=== PATIENT | male | born 1950 | race Two or more races ===

== ENCOUNTER 2021-03-02 13:44 | Outpatient (CLI) | payer OTHER ==
[2021-03-08] MEDS ORDERED: ASPI-992 PO (12:21)
== END 2021-03-02 23:59 | disposition home or self-care (01) ==
LOC: LAB 13:44
PROVIDERS: ATTEND Specialist
DX: Z01.812 Encounter for preprocedural laboratory examination (principal); Z20.822 Contact with and (suspected) exposure to COVID-19
CPT/HCPCS: C9803; U0003

== ENCOUNTER 2021-03-07 08:48 | Inpatient (IN) | payer OTHER ==
[~2021-03-07] VITALS: Ht 167.6 cm; Wt 66.0 kg
[2021-03-07] MEDS ORDERED: ACET-868 PO (09:28)
[2021-03-07] MEDS ORDERED: ACET-2605 PO (09:28)
[2021-03-07] MEDS ORDERED: TAMS-12 PO (09:28)
[2021-03-07] MEDS ORDERED: AMLO-212 PO (09:28)
[2021-03-07] MEDS ORDERED: ASPI-1169 PO (09:28)
[2021-03-07] MEDS ORDERED: MELA5TAB PO (09:28)
[2021-03-07] MEDS ORDERED: CALC1TAB30 PO (09:28)
[2021-03-07] MEDS ORDERED: GABA-532 PO (09:28)
[2021-03-07] MEDS ORDERED: ROSU20TA32 PO (09:28)
--- NOTE | 2021-03-07 09:30 | NUR ---
MS RN NOTE ADMITTED AROUND 09:10h IS A 71 YEAR OLD MALE, WHO CAME IN USING A WALKER. PATIENT IS ALERT/ ORIENTED X 4, AMBULATES WITH WALKER, ACCOMPANIED BY EX-. PATIENT IS SCHEDULED TO OR PROCEDURE FOR RIGHT TOTAL KNEE ARTHROPLASTY UNDER DR. IBRAHIM. PATIENT RESTING ON BED, COMFORT MEASURES PROVIDED. PATIENT ON ROOM AIR, WITH EQUAL AND UNLABORED BREATHING. PATIENT ON NPO SINCE 8PM LAST NIGHT. IV ACCESS STARTED ON THE RIGHT HAND G 20, PATENT AND INTACT, ON SALINE LOCK. PATIENT ABLE TO VERBALIZE NEEDS. NOT IN DISTRESS. DR. MENDEZ NOTIFIED OF ADMISSION. WILL CONTINUE TO MONITOR PATIENT.
[2021-03-07] MEDS ORDERED: methylPREDNISolone ACETATE 80 MG/ML VIAL ONE (10:08)
[2021-03-07] MEDS ORDERED: POLYMYXIN B SULFATE 500,000 UNITS ONE (10:08)
[2021-03-07] MEDS ORDERED: BUPIVACAINE 0.5 % PF 150 MG/30 ML VIAL ONE ×2 (10:08→10:51)
--- NOTE | 2021-03-07 10:10 | NUR ---
MS RN NOTE PATIENT SEEN BY DR. MENDEZ. WILL CONTINUE TO MONITOR PATIENT.
[2021-03-07] MEDS ORDERED: diphenhydrAMINE HCL 25 MG CAPSULE PO PRN (10:30)
[2021-03-07] MEDS ORDERED: MAG HYDROX/AL HYDROX/SIMETH 30 ML UDC PO PRN (10:30)
[2021-03-07] MEDS ORDERED: MAGNESIUM HYDROXIDE 30 ML UDC PO PRN (10:30)
[2021-03-07] MEDS ORDERED: TRANEXAMIC ACID 3,000 MG in SODIUM CHLORIDE IRRIG SOLUTION 70 ML IR ONE (10:30)
[2021-03-07] MEDS ORDERED: MENTHOL/CETYLPYRD (CEPACOL) 1 LOZ LOZENGE PO PRN (10:30)
[2021-03-07] MEDS ORDERED: ONDANSETRON HCL/PF 4 MG/2 ML VIAL IV PRN (10:30)
[2021-03-07] MEDS ORDERED: CLONIDINE HCL 0.1 MG TABLET PO PRN (10:30)
--- NOTE | 2021-03-07 10:40 | NUR ---
MS RN NOTE PATIENT PICKED UP FOR OR AROUND 1035H. IN STABLE CONDITION. CONSENTS AND PREOPERATIVE CHECK LISTS SIGNED AND ATTACHED TO CHART.
[2021-03-07] MEDS ORDERED: HYDROMORPHONE INJ 2 MG/ML DISP.SYRIN ONE (10:51)
[2021-03-07] MEDS ORDERED: ONDANSETRON HCL/PF 4 MG/2 ML VIAL IVP PRN (11:00)
[2021-03-07] MEDS ORDERED: hydrALAZINE HCL IV 20 MG VIAL IV PRN (11:00)
[2021-03-07] MEDS ORDERED: SEVOFLURANE 250 ML BOTTLE IH ONE (11:04)
[2021-03-07] MEDS ORDERED: FENTANYL PF 100MCG/2ML AMPUL ONE (12:29)
--- NOTE | 2021-03-07 12:30 | NUR ---
MS RN NOTE PATIENT BACK FROM OR IN STABLE CONDITION. PATIENT RETURNED TO FLOOR VIA BED, ALERT AND ORIENTED. COMFORT MEASURES PROVIDED. ABLE TO MAKE NEEDS KNOWN, WITH ONGOING IVF OF LR RUNNING AT 100ML/HR, INFUSING WELL. PATIENT WITH SOME DISCOMFORT ON THE RIGHT KNEE WITH IMMOBILIZER AND LEG COVERED WITH ELASTIC BANDAGE. IN LEG PUMP ON THE LEFT LEG. VITAL SIGNS MONITORED AND WNL WITH NO SIGNS OF DISTRESS. NOT IN DISTRESS. WILL CONTINUE TO MONITOR PATIENT.
[2021-03-07] MEDS ORDERED: HYDROMORPHONE 1 MG/1 ML DISP.SYRIN ONE ×2 (12:33→12:53)
[2021-03-07] MEDS ORDERED: IV LR 1000 ML 1,000 ML IV PRN (13:00)
--- NOTE | 2021-03-07 14:00 | NUR ---
MS RN NOTE PATIENT WITH ORDER TO HAVE CPAP TO BE USED AT NIGHT AND WHEN SNOOZING/ DOZING. RT NOTIFIED OF MD ORDER.
[2021-03-07] MEDS: oxyCODONE IR immediate release 5 MG PO PRN ×2 (14:39→23:04)
[2021-03-07] MEDS: DOCUSATE SODIUM 100 MG CAPSULE PO SCH (16:54)
[2021-03-07] MEDS: MORPHINE SULFATE INJ 4 MG/ML DISP.SYRIN IV PRN (16:55)
[2021-03-07] MEDS: GABAPENTIN 300 MG CAPSULE PO SCH (16:55)
[2021-03-07] MEDS: ANCEF 1 GM/50 ML D5W IV SCH (18:31)
--- NOTE | 2021-03-07 18:49 | NUR ---
MS RN CLOSING NOTE PATIENT IS ALERT/ ORIENTED X 4. PATIENT RESTING ON BED, COMFORT MEASURES PROVIDED. PATIENT ON ROOM AIR, WITH EQUAL AND UNLABORED BREATHING. IV ACCESS ON THE RIGHT HAND G 20 WITH IVF OF LR RUNNING AT 100ML/HR. PATIENT ABLE TO VERBALIZE NEEDS. NOT IN DISTRESS. NOT COMPLAINING OF ANY PAIN OR DISCOMFORT AT THIS TIME. PATIENT HAD OR PROCEDURE OF TOTAL KNEE ARTHROPLASTY OF THE RIGHT KNEE WITH ELASTIC BANDAGE AND IMMOBILIZER. WITH GOOD CIRCULATION ON THE FOOT. WITH NO MOTOR OR SENSORY DEFICIT NOTED. SAFETY MEASURES ENSURED WITH BED LOCKED, AND AT LOWEST POSITION. MAINTAINED ON MODERATE TO HIGH BACK REST. CALL LIGHT WITHIN REACH AT ALL TIMES. WILL ENDORSE PATIENT FOR CONTINUITY OF CARE.
--- NOTE | 2021-03-07 19:30 | NUR ---
MS RN OPENING NOTE RECEIVED PT IN BED AWAKE. A/O X4. PT STABLE ON ROOM AIR. NO SOB OR S/S OF RESPIRATORY DISTRESS. IV ACCESS ON THE RIGHT HAND G 20 WITH IVF OF LR RUNNING AT 100ML/HR, INTACT AND PATENT. PATIENT HAD OR PROCEDURE OF TOTAL KNEE ARTHROPLASTY OF THE RIGHT KNEE WITH ELASTIC BANDAGE AND IMMOBILIZER. WITH GOOD CIRCULATION ON THE FOOT. SAFETY PRECAUTIONS IN PLACE. BED IN LOWEST LOCKED POSITION, HOB ELEVATED, SIDE RAILS UP X2, AND CALL LIGHT AND TABLE WITHIN REACH. WILL CONTINUE TO MONITOR.
[2021-03-07] MEDS: FAMOTIDINE (20 MG) 20 MG TABLET PO SCH (20:04)
[2021-03-07] MEDS: TAMSULOSIN 0.4 MG CAP.SR.24H PO SCH (21:50)
[2021-03-07] MEDS ORDERED: TAMSULOSIN 0.4 MG CAP.SR.24H PO SCH (22:00)
--- NOTE | 2021-03-07 23:04 | NUR ---
RN NOTE PT COMPLAINED OF PAIN 6/10 OF THE RIGHT KNEE. GAVE OXY IR 10 MG PER DOCTOR ORDER. WILL CONTINUE TO MONITOR.
--- NOTE | 2021-03-07 23:10 | NUR ---
RT PT declined to be placed on NOC CPAP. Discussed risk and benefits with Pt. Pt said he would rather not use it, and that he does not use his CPAP at home often. No SOB noted at this time. RN aware.
[2021-03-08] MEDS: ANCEF 1 GM/50 ML D5W IV SCH (02:32)
[2021-03-08] MEDS: MORPHINE SULFATE INJ 4 MG/ML DISP.SYRIN IV PRN ×2 (02:49→14:33)
--- NOTE | 2021-03-08 02:49 | NUR ---
RN NOTE PT COMPLAINED ABOUT PAIN 3/10 OF THE RIGHT KNEE. ADMINISTERED MORPHINE SULFATE 2 MG PER ORDER. WILL CONTINUE TO MONITOR.
[2021-03-08] MEDS: HYDROMORPHONE 1 MG/1 ML DISP.SYRIN IM/IV/SC PRN ×4 (04:56→20:11)
--- NOTE | 2021-03-08 04:56 | NUR ---
RN NOTE PT COMPLAINED OF PAIN 8/10 OF THE RIGHT KNEE. ADMINISTERED DILAUDID 0.5 MG ORDERED. WILL CONTINUE TO MONITOR.
--- NOTE | 2021-03-08 06:30 | NUR ---
MS RN CLOSING NOTE PT IN BED AWAKE. A/O X4. PT STABLE ON ROOM AIR. NO SOB OR S/S OF RESPIRATORY DISTRESS. IV ACCESS ON THE RIGHT HAND G 20 WITH IVF OF LR RUNNING AT 100ML/HR, INTACT AND PATENT. PATIENT HAD OR PROCEDURE OF TOTAL KNEE ARTHROPLASTY OF THE RIGHT KNEE WITH ELASTIC BANDAGE AND IMMOBILIZER. WITH GOOD CIRCULATION ON THE FOOT. ALL NEEDS MET AT THIS TIME. SAFETY PRECAUTIONS MAINTAINED AT ALL TIMES. BED IN LOWEST LOCKED POSITION, HOB ELEVATED, SIDE RAILS UP X2, AND CALL LIGHT AND TABLE WITHIN REACH. WILL ENDORSE TO ONCOMING NURSE FOR JAROCHO.
[2021-03-08 06:35] LABS: BASOPHILS % (AUTO) 0.1 % (0.0-2.0); HEMATOCRIT 33 % (39-51); HEMOGLOBIN 11.3 g/dL (13.5-17.5); LYMPHOCYTES # (AUTO) 0.9 K/uL (0.8-4.8); LYMPHOCYTES % (AUTO) 8.5 % (20.0-44.0); MEAN CORPUSCULAR HGB CONC 34 g/dl (31.0-36.0); MEAN CORPUSCULAR VOLUME 95 fL (80-96); MONOCYTES # (AUTO) 1.2 K/uL (0.1-1.30); MONOCYTES % (AUTO) 11.5 % (2.0-12.0); NEUTROPHILS # (AUTO) 8.2 K/uL (1.8-8.9); NEUTROPHILS % (AUTO) 79.9 % (43.0-81.0); PLATELET COUNT (AUTO) 215 K/uL (150-450); WHITE BLOOD COUNT (AUTO) 10.2 K/uL (4.3-11.0)
[2021-03-08 06:36] LABS: ALBUMIN 3.4 g/dL (3.4-5.0); BILIRUBIN,TOTAL 0.6 mg/dL (0.2-1.0); CALCIUM, SERUM 8.1 mg/dL (8.5-10.1); CREATININE 0.9 mg/dL (0.6-1.3); PHOSPHORUS 3.3 mg/dL (2.5-4.9); POTASSIUM 4.1 mmol/L (3.5-5.1); TOTAL PROTEIN, SERUM 6.9 g/dL (6.4-8.2)
--- NOTE | 2021-03-08 07:18 | NUR ---
MS SINGH OPENING NOTE RECEIVED PATIENT ALERT/ ORIENTED X 4. PATIENT ON ROOM AIR, WITH EQUAL AND UNLABORED BREATHING. WITH IV ACCESS ON THE RIGHT HAND G 20 WITH IVF OF LR RUNNING AT 100ML/HR. PATIENT ABLE TO VERBALIZE NEEDS. NOT COMPLAINING OF ANY PAIN OR DISCOMFORT AT THIS TIME. PATIENT S/P RIGHT TKA WITH ELASTIC BANDAGE AND IMMOBILIZER. WITH GOOD CIRCULATION ON THE FOOT. WITH NO MOTOR OR SENSORY DEFICIT NOTED. SAFETY MEASURES ENSURED WITH BED LOCKED, AND AT LOWEST POSITION. SIDE RAILS RAISED. CALL LIGHT WITHIN REACH AT ALL TIMES. WILL ENDORSE PATIENT FOR CONTINUITY OF CARE. Addendum: 03/08/21 at 1859 by JACQUES AGUILAR RN LAST LINE. WILL CONTINUE MONITORING PATIENT.
[2021-03-08 08:00] VITALS: BP 110/59
[2021-03-08] MEDS: GABAPENTIN 300 MG CAPSULE PO SCH ×3 (08:18→16:46)
[2021-03-08] MEDS: ATORVASTATIN 40 MG TABLET PO SCH (08:18)
[2021-03-08] MEDS: DOCUSATE SODIUM 100 MG CAPSULE PO SCH ×2 (08:18→16:46)
[2021-03-08] MEDS: ASPIRIN 325 MG TABLET PO SCH (08:18)
[2021-03-08] MEDS: AMLODIPINE BESYLATE 5 MG TABLET PO SCH (08:19)
[2021-03-08] MEDS: FAMOTIDINE (20 MG) 20 MG TABLET PO SCH ×2 (08:19→20:10)
[2021-03-08] MEDS: oxyCODONE IR immediate release 5 MG PO PRN ×3 (08:20→16:46)
[2021-03-08] MEDS ORDERED: GABAPENTIN 100 MG CAPSULE PO SCH (09:00)
[2021-03-08] MEDS ORDERED: ASPI-992 PO (12:21)
--- NOTE | 2021-03-08 15:13 | NUR ---
MS RN NOTE PATIENT ON CPM MACHINE BUT UNABLE TO TOLERATE MORE THAN 20 MINUTES AND SAID HE HAD BEEN IN PAIN SINCE. PAIN MEDICATIONS GIVEN. PROVIDED WITH CALM AND QUIET ENVIRONMENT. WILL CONTINUE TO MONITOR PATIENT.
[2021-03-08 16:00] VITALS: BP 146/80
--- NOTE | 2021-03-08 17:54 | NUR ---
MS RN NOTE PATIENT SEEN BY ORTHO BILL CLERK MILTON. WILL CONTINUE TO MONITOR PATIENT.
--- NOTE | 2021-03-08 18:58 | NUR ---
MS RN CLOSING NOTE PATIENT ALERT/ ORIENTED X 4. PATIENT ON ROOM AIR, WITH EQUAL AND UNLABORED BREATHING. WITH IV ACCESS ON THE RIGHT HAND G 20 WITH IVF OF LR RUNNING AT 100ML/HR. PATIENT ABLE TO VERBALIZE NEEDS. NOT COMPLAINING OF ANY PAIN OR DISCOMFORT AT THIS TIME. PATIENT S/P RIGHT TKA WITH ELASTIC BANDAGE. WITH GOOD CIRCULATION ON THE FOOT. WITH NO MOTOR OR SENSORY DEFICIT NOTED. SAFETY MEASURES ENSURED WITH BED LOCKED, AND AT LOWEST POSITION. SIDE RAILS RAISED. CALL LIGHT WITHIN REACH AT ALL TIMES. WILL ENDORSE PATIENT FOR CONTINUITY OF CARE.
--- NOTE | 2021-03-08 19:25 | NUR ---
MS RN OPENING NOTE RECEIVED PT IN BED AWAKE. A/O X4. PT STABLE ON ROOM AIR. NO SOB OR S/S OF RESPIRATORY DISTRESS. IV ACCESS ON THE RIGHT HAND G 20, INTACT AND PATENT. PATIENT HAD OR PROCEDURE OF TOTAL KNEE ARTHROPLASTY OF THE RIGHT KNEE WITH ELASTIC BANDAGE AND IMMOBILIZER. WITH GOOD CIRCULATION ON THE FOOT. SAFETY PRECAUTIONS IN PLACE. BED IN LOWEST LOCKED POSITION, HOB ELEVATED, SIDE RAILS UP X2, AND CALL LIGHT AND TABLE WITHIN REACH. WILL CONTINUE TO MONITOR.
--- NOTE | 2021-03-08 19:35 | NUR ---
RN NOTE PT REFUSING IV FLUIDS. PATIENT IS CONSUMING WATER ORALLY AND IN URINATING MORE THAN 30 ML/HR. NO S/S OF DEHYDRATION AT THIS TIME. HELD IV FLUIDS PER PATIENT REQUEST. WILL CONTINUE TO MONITOR.
[2021-03-08 20:00] VITALS: BP 139/66
--- NOTE | 2021-03-08 20:11 | NUR ---
RN NOTE PT COMPLAINED OF PAIN 10/10 OF THE RIGHT KNEE. ADMINISTERED DILAUDID 0.5 MG ORDERED. VSS. WILL CONTINUE TO MONITOR.
[2021-03-08] MEDS: TAMSULOSIN 0.4 MG CAP.SR.24H PO SCH (22:16)
[2021-03-09] MEDS: HYDROMORPHONE 1 MG/1 ML DISP.SYRIN IM/IV/SC PRN ×3 (01:53→10:48)
--- NOTE | 2021-03-09 01:53 | NUR ---
RN NOTE PT COMPLAINED OF PAIN 9/10 OF THE RIGHT KNEE. ADMINISTERED DILAUDID 0.5 MG ORDERED. VSS. WILL CONTINUE TO MONITOR.
--- NOTE | 2021-03-09 06:45 | NUR ---
MS RN CLOSING NOTE PT IN BED AWAKE. A/O X4. PT STABLE ON ROOM AIR. NO SOB OR S/S OF RESPIRATORY DISTRESS. IV ACCESS ON THE RIGHT HAND G 20, INTACT AND PATENT. PATIENT HAD OR PROCEDURE OF TOTAL KNEE ARTHROPLASTY OF THE RIGHT KNEE WITH ELASTIC BANDAGE AND IMMOBILIZER. WITH GOOD CIRCULATION ON THE FOOT. DRESSING C/D/I. ALL NEEDS MET AT THIS TIME. SAFETY PRECAUTIONS MAINTAINED AT ALL TIMES. BED IN LOWEST LOCKED POSITION, HOB ELEVATED, SIDE RAILS UP X2, AND CALL LIGHT AND TABLE WITHIN REACH. WILL ENDORSE TO ONCOMING NURSE FOR JAROCHO.
--- NOTE | 2021-03-09 07:07 | NUR ---
MS RN OPENING NOTES RECEIVED PT AWAKE IN BED IN NO ACUTE SIGNS OF DISTRESS. A/O X4. ABLE TO MAKE NEEDS KNOWN, DENIES PAIN AT THIS TIME. ON ROOM AIR. TOLERATING WELL, BREATHING EVEN AND UNLABORED. IV ACCESS ON RIGHT HAND G# 20 INTACT AND PATENT. DRESSING ON RIGHT KNEE WRAPPED WITH DONAVON BANDAGE C/D/I. SAFETY PRECAUTIONS IN PLACE: BED IN LOWEST LOCKED POSITION, HOB ELEVATED, SIDE RAILS UP X2 AND CALL LIGHT AND TABLE WITHIN REACH. WILL CONTINUE TO MONITOR.
[2021-03-09 08:00] VITALS: BP 148/74
[2021-03-09] MEDS: FAMOTIDINE (20 MG) 20 MG TABLET PO SCH ×2 (08:10→21:40)
[2021-03-09] MEDS: AMLODIPINE BESYLATE 5 MG TABLET PO SCH (08:10)
[2021-03-09] MEDS: GABAPENTIN 300 MG CAPSULE PO SCH ×3 (08:10→16:35)
[2021-03-09] MEDS: ASPIRIN 325 MG TABLET PO SCH (08:10)
[2021-03-09] MEDS: DOCUSATE SODIUM 100 MG CAPSULE PO SCH ×2 (08:10→16:35)
[2021-03-09] MEDS: ATORVASTATIN 40 MG TABLET PO SCH (08:10)
--- NOTE | 2021-03-09 08:18 | NUR ---
RN NOTES PT C/O RIGHT KNEE PAIN, 10/10 SCALE. PRN DILAUDID 0/5MG/0.5ML IVP ADMINISTERED AT 0809. WILL CONTINUE TO MONITOR AND REASSESS.
--- NOTE | 2021-03-09 10:46 | NUR ---
RN NOTES RIGHT KNEE DRESSING CHANGED BT BAKARI MCCRAY JUST NOW.
--- NOTE | 2021-03-09 10:54 | NUR ---
RN NOTES PT C/O RIGHT KNEE PAIN AFTER DRESSING CHANGED BY ALLISON MCCRAY, 8/10 SCALE. PRN DILAUDID 0/5MG/0.5ML IVP ADMINISTERED AT 1048. WILL CONTINUE TO MONITOR AND REASSESS.
[2021-03-09] MEDS: oxyCODONE IR immediate release 5 MG PO PRN (12:54)
--- NOTE | 2021-03-09 12:58 | NUR ---
RN NOTES PT C/O ACHING AND SHARP RIGHT KNEE PAIN, 7/10 SCALE. PRN OXY 1R 10MG PO GIVEN AT 1254. WILL CONTINUE TO MONITOR AND REASSESS.
--- NOTE | 2021-03-09 13:59 | NUR ---
RN NOTES TOPPIECE CHOPPER JACQUELINE AT PT'S BEDSIDE STATED THAT PT WILL BE DISCHARGED TO "[facility]" PENDING AUTHORIZATION. PT IS AWARE.
[2021-03-09 16:00] VITALS: BP 132/56
--- NOTE | 2021-03-09 16:00 | NUR ---
RN NOTES CPM MACHINE REMOVED THAT WAS PLACED BY PHYSICAL THERAPIST EARLIER.
[2021-03-09] MEDS: HYDROMORPHONE 1 MG/1 ML DISP.SYRIN SQ PRN ×3 (16:35→23:23)
--- NOTE | 2021-03-09 16:40 | NUR ---
RN NOTES PT C/O RIGHT KNEE PAIN, 8/10 SCALE. PRN DILAUDID 1 MG/ML IVP ADMINISTERED AT 1635. WILL CONTINUE TO MONITOR AND REASSESS.
--- NOTE | 2021-03-09 18:36 | NUR ---
MS RN CLOSING NOTES PT IN BED AWAKE AND RESTING AT MODERATE HIGH BACKREST POSITION. A/O X4. ABLE TO MAKE NEEDS KNOWN. ON ROOM AIR, TOLERATING WELL, BREATHING EVEN AND UNLABORED. IV ACCESS ON RIGHT HAND G# 20 INTACT, PATENT AND FLUSHES WELL. DRESSING ON RIGHT KNEE WRAPPED WITH DONAVON BANDAGE C/D/I. ALL NEEDS AND CARE ATTENDED WELL. SAFETY PRECAUTIONS IN PLACE: BED IN LOWEST LOCKED POSITION, HOB ELEVATED, SIDE RAILS UP X2, CALL LIGHT AND TABLE WITHIN EASY REACH OF PT. WILL ENDORSE JAROCHO TO WAISTLINE JOINER OVERLOCK NURSE
--- NOTE | 2021-03-09 19:25 | NUR ---
MS RN OPENING NOTES RECEIVED PATIENT LAYING AWAKE IN BED. A/O X4. PATIENT WITH REGULAR AND UNLABORED BREATHING ON ROOM AIR, TOLERATED WELL. NO SIGNS AND SYMPTOMS OF DISTRESS NOTED. NO COMPLAIN OF PAIN OR DISCOMFORT AT THIS TIME. IV ACCESS R HAND G#20 SL. ACCESS PATENT AND INTACT. SAFETY PRECAUTIONS ENFORCED BED LOCKED AND AT LOWEST POSITION. SIDERAILS UP X2. CALL LIGHT WITHIN REACH AT ALL TIMES. WILL CONTINUE TO MONITOR PATIENT.
[2021-03-09 20:00] VITALS: BP 126/74
--- NOTE | 2021-03-09 20:21 | NUR ---
MS RN NOTES PATIENT COMPLAINED OF PAIN. ADMINISTERED DILAUDID 1MG/ML Q3H PRN ORDERED BY HOSPITALIST.
[2021-03-09] MEDS: TAMSULOSIN 0.4 MG CAP.SR.24H PO SCH (21:40)
--- NOTE | 2021-03-09 23:23 | NUR ---
MS RN NOTES PATIENT COMPLAINED OF PAIN. ADMINISTERED DILAUDID 1MG/ML Q3H PRN ORDERED BY HOSPITALIST.
[2021-03-10] MEDS: oxyCODONE IR immediate release 5 MG PO PRN ×5 (01:27→16:20)
--- NOTE | 2021-03-10 01:27 | NUR ---
MS RN NOTES PATIENT COMPLAINED OF PAIN. ADMINISTERED OXYIR 10 MG PO Q3H PRN ORDERED BY HOSPITALIST.
[2021-03-10] MEDS: HYDROMORPHONE 1 MG/1 ML DISP.SYRIN SQ PRN (03:04)
[2021-03-10] MEDS ORDERED: MAGNESIUM CITRATE 296 ML BOTTLE PO ONE (06:57)
[2021-03-10] MEDS ORDERED: MAGNESIUM CITRATE 296 ML BOTTLE PO PRN (07:00)
--- NOTE | 2021-03-10 07:34 | NUR ---
MS RN CLOSING NOTES PATIENT STILL LAYING AWAKE IN BED. A/O X4. PATIENT WITH REGULAR AND UNLABORED BREATHING ON ROOM AIR, TOLERATED WELL. NO SIGNS AND SYMPTOMS OF DISTRESS NOTED. NO COMPLAIN OF PAIN OR DISCOMFORT AT THIS TIME. IV ACCESS R HAND G#20 SL. ACCESS PATENT AND INTACT. SAFETY PRECAUTIONS ENFORCED BED LOCKED AND AT LOWEST POSITION. SIDERAILS UP X2. CALL LIGHT WITHIN REACH AT ALL TIMES. WILL ENDORSE JAROCHO TO DAY SHIFT NURSE.
--- NOTE | 2021-03-10 08:05 | NUR ---
RN note Patient received in bed, AO x 4, able to responds all stimuli. Skin is warm to touch, keep clean/dry, intact IV site on right hand. Patient s/p right total knee arthroplasty and able to reposition self. Respiratory even and unlabored on room air, no SOB observed. Call light within reach, kept lower bed position for safety. Will continue to monitor.
[2021-03-10 08:09] VITALS: BP 116/71
[2021-03-10] MEDS: ATORVASTATIN 40 MG TABLET PO SCH (09:31)
[2021-03-10] MEDS: DOCUSATE SODIUM 100 MG CAPSULE PO SCH ×2 (09:31→16:20)
[2021-03-10] MEDS: GABAPENTIN 300 MG CAPSULE PO SCH ×3 (09:31→16:20)
[2021-03-10] MEDS: AMLODIPINE BESYLATE 5 MG TABLET PO SCH (09:32)
[2021-03-10] MEDS: ASPIRIN 325 MG TABLET PO SCH (09:32)
[2021-03-10] MEDS: FAMOTIDINE (20 MG) 20 MG TABLET PO SCH ×2 (09:32→21:16)
[2021-03-10 16:26] VITALS: BP 128/72
--- NOTE | 2021-03-10 17:58 | NUR ---
RN Closing Note Patient in bed, resting, remains AO x 4. Respiratory even and unlabored on room air. Skin is warm to touch, keep clean/dry, intact IN site site on right CAIN. Patient s/p right total knee arthroplasty and tolerated well. No s/s of adverse reaction observed from Abx. Kept elevated HOB for airway and lower position of the bed for safety. Call light within reach, all needs met. will endorse cage shift manager.
--- NOTE | 2021-03-10 19:29 | NUR ---
MS RN OPENING NOTES: RECEIVED PATIENT IN BED AWAKE, BED IN LOW POSITION, CALL LIGHTS WITHIN REACH, NO COMPLAIN OF PAIN AND DISCOMFORT AT THIS TIME, PATIENT IS A/O X4 AMBULATORY WITH SUPERVISION, WITH IV LINE AT RT HAND #20SL, ON ROOM AIR NO SOB WAS OBSERVED, ALL NEEDS MET, WILL CONTINUE TO MONITOR.
[2021-03-10 20:00] VITALS: BP 111/61
[2021-03-11] MEDS: HYDROMORPHONE 1 MG/1 ML DISP.SYRIN SQ PRN ×3 (01:06→17:08)
[2021-03-11] MEDS: oxyCODONE IR immediate release 5 MG PO PRN ×4 (04:51→22:01)
--- NOTE | 2021-03-11 06:33 | NUR ---
RN CLOSING NOTES: PATIENT SLEEP IN BED COMFORTABLY BED IN LOW POSITION, CALL LIGHTS WITHIN REACH, NO COMPLAIN OF PAIN AND DISCOMFORT AT THIS TIME, PATIENT ABLE TO AMBULATE WITH SUPERVISION, WITHIV LINE AT RT HAND #20SL ON CPM TOLERATED, PATIENT KE[T CLEAN AND DRY, ALL NEEDS MET, ENDORSE TO INCOMING SHIFT.
--- NOTE | 2021-03-11 07:15 | NUR ---
MS RN OPENING NOTE RECEIVED PATIENT ALERT/ ORIENTED X 4. PATIENT ON ROOM AIR, WITH EQUAL AND UNLABORED BREATHING. WITH IV ACCESS ON THE RIGHT HAND G 20, IV ACCESS PATENT AND INTACT. PATIENT ABLE TO VERBALIZE NEEDS. NOT COMPLAINING OF ANY PAIN OR DISCOMFORT AT THIS TIME. PATIENT S/P RIGHT TKA WITH ELASTIC BANDAGE. WITH GOOD CIRCULATION ON THE FOOT. WITH NO MOTOR OR SENSORY DEFICIT NOTED. SAFETY MEASURES ENSURED WITH BED LOCKED, AND AT LOWEST POSITION. SIDE RAILS RAISED. CALL LIGHT WITHIN REACH AT ALL TIMES. WILL CONTINUE TO MONITOR PATIENT.
[2021-03-11] MEDS: ATORVASTATIN 40 MG TABLET PO SCH (08:25)
[2021-03-11] MEDS: GABAPENTIN 300 MG CAPSULE PO SCH ×3 (08:25→17:07)
[2021-03-11] MEDS: ASPIRIN 325 MG TABLET PO SCH (08:25)
[2021-03-11] MEDS: DOCUSATE SODIUM 100 MG CAPSULE PO SCH ×2 (08:25→17:07)
[2021-03-11] MEDS: FAMOTIDINE (20 MG) 20 MG TABLET PO SCH ×2 (08:26→21:22)
[2021-03-11] MEDS: AMLODIPINE BESYLATE 5 MG TABLET PO SCH (08:26)
[2021-03-11 08:27] VITALS: BP 112/55
--- NOTE | 2021-03-11 09:30 | NUR ---
MS RN NOTE SEEN BY DR. MENDEZ. WILL CONTINUE TO MONITOR PATIENT.
[2021-03-11 16:08] VITALS: BP 112/92
--- NOTE | 2021-03-11 18:51 | NUR ---
MS RN CLOSING NOTE PATIENT ALERT/ ORIENTED X 4. PATIENT ON ROOM AIR, WITH EQUAL AND UNLABORED BREATHING. WITH IV ACCESS ON THE RIGHT HAND G 20, IV ACCESS PATENT AND INTACT. PATIENT ABLE TO VERBALIZE NEEDS. NOT COMPLAINING OF ANY PAIN OR DISCOMFORT AT THIS TIME. PATIENT S/P RIGHT TKA WITH ELASTIC BANDAGE. WITH GOOD CIRCULATION ON THE FOOT. WITH NO MOTOR OR SENSORY DEFICIT NOTED. ABLE TO TOLERATE pt/ot SERVICES. SAFETY MEASURES ENSURED WITH BED LOCKED, AND AT LOWEST POSITION. SIDE RAILS RAISED. CALL LIGHT WITHIN REACH AT ALL TIMES. WILL ENDORSE PATIENT FOR CONTINUITY OF CARE.
--- NOTE | 2021-03-11 19:29 | NUR ---
MS RN OPENING NOTES: RECEIVED PATIENT SLEEP IN BED COMFORTABLY, AROUSABLE TO VERBAL STIMULI, BED IN LOW POSITION, CALL LIGHTS WITHIN REACH, NO COMPLAIN OF PAIN AND DISCOMFORT AT THIS TIME, PATIENT IS A/O X4 BRP WITH SUPERVISION, ON PAIN MANAGEMENT RA SATURATING WELL, PATIENT KEPT CLEAN AND DRY, ALL NEEDS MET, WILL CONTINUE TO MONITOR.
[2021-03-11 20:00] VITALS: BP 115/65
[2021-03-11 23:39] VITALS: BP 115/65
[2021-03-12] MEDS: HYDROMORPHONE 1 MG/1 ML DISP.SYRIN SQ PRN ×3 (01:28→17:09)
[2021-03-12] MEDS: oxyCODONE IR immediate release 5 MG PO PRN ×5 (05:12→18:42)
--- NOTE | 2021-03-12 07:23 | NUR ---
RN OPENING AWAKE IN BED RESTING. ON RA WITH NO RESPIRATORY DISTRESS. A/O X4 AND GERMAN SPEAKING. AMBULATORY WITH WALKER ASSIST. S/P R TOTAL KNEE REPLACEMENT. IV PRESENT ON R HAND 20G AND SALINE LOCKED. LABS AND ORDERS REVIEWED. SAFETY MEASURES IN PLACE. SIDE RAILS IN PLACE. BED LOWERED. CALL LIGHT WITHIN REACH. WILL CONTINUE TO MONITOR.
--- NOTE | 2021-03-12 07:27 | NUR ---
RN CLOSING NOTES: PATIENT SLEEP IN BED COMFORTABLY BED IN LOW POSITION, CALL LIGHTS WITHIN REACH, NO COMPLAIN OF PAIN AND DISCOMFORT AT THIS TIME, A/O X4 AMBULATORY WITH FWW, TO BATHROOM, WITH BANDAGE ON RIGHT KNEE POST TKA CLEAN NO BLEEDING WAS OBSERVED, PATIENT KEPT CLEAN AND DRY, ALL NEEDS MET ENDORSE TO INCOMING SHIFT.
[2021-03-12 08:00] VITALS: BP 110/62
[2021-03-12] MEDS: GABAPENTIN 300 MG CAPSULE PO SCH ×3 (08:04→17:08)
[2021-03-12] MEDS: DOCUSATE SODIUM 100 MG CAPSULE PO SCH ×2 (08:04→17:08)
[2021-03-12] MEDS: ASPIRIN 325 MG TABLET PO SCH (08:04)
[2021-03-12] MEDS: ATORVASTATIN 40 MG TABLET PO SCH (08:04)
[2021-03-12] MEDS: FAMOTIDINE (20 MG) 20 MG TABLET PO SCH ×2 (08:05→20:03)
[2021-03-12] MEDS: AMLODIPINE BESYLATE 5 MG TABLET PO SCH (08:54)
[2021-03-12 16:03] VITALS: BP 136/71
--- NOTE | 2021-03-12 18:53 | NUR ---
RN CLOSING NOTE AWAKE IN BED RESTING. ON RA WITH NO RESPIRATORY DISTRESS. A/O X4 AND IRISH SPEAKING. AMBULATORY WITH WALKER ASSIST. S/P R TOTAL KNEE REPLACEMENT. IV PRESENT ON R HAND 20G AND SALINE LOCKED. LABS AND ORDERS REVIEWED. SAFETY MEASURES IN PLACE. SIDE RAILS IN PLACE. BED LOWERED. CALL LIGHT WITHIN REACH. WILL GIVE REPORT TO NIGHT NURSE FOR JAROCHO
--- NOTE | 2021-03-12 19:56 | NUR ---
MS RN OPENING NOTES RECEIVED PATIENT IN BED, ASLEEP, AWAKENS TO VERBAL STIMULI. AOx4, ABLE TO MAKE NEEDS KNOWN. ON RA AND TOLERATING WELL. NO SOB NOTED. NO S/SX OF RESPIRATORY DISTRESS NOTED. IV ACCESS IN R HAND #20. IV IS INTACT, PATENT AND FLUSHING WELL. SAFETY PRECAUTIONS IN PLACE: BED IN LOWEST, LOCKED POSITION, SIDERAILS UPx2, AND BRAKES ON. TABLE AND CALL LIGHT WITHIN REACH. WILL CONTINUE TO MONITOR.
[2021-03-12 20:00] VITALS: BP 107/57
[2021-03-12] MEDS: ACETAMINOPHEN 325 MG TABLET PO PRN (20:03)
--- NOTE | 2021-03-12 20:03 | NUR ---
PT HAD FEVER ADMINISTERED TYLENOL AT 2002. WILL CONTINUE TO MONITOR.
[2021-03-13] MEDS: oxyCODONE IR immediate release 5 MG PO PRN ×4 (00:36→22:39)
--- NOTE | 2021-03-13 00:36 | NUR ---
ADMINISTERED OXYCODONE FOR PAIN PER MD ORDER. VS WNL. WILL CONTINUE TO MONITOR.
[2021-03-13] MEDS: HYDROMORPHONE 1 MG/1 ML DISP.SYRIN SQ PRN ×3 (01:41→19:45)
--- NOTE | 2021-03-13 01:41 | NUR ---
ADMINISTERED DILAUDID FOR PAIN PER MD ORDER. VS WNL. WILL CONTINUE TO MONITOR.
--- NOTE | 2021-03-13 05:06 | NUR ---
ADMINISTERED OXYCODONE FOR PAIN PER MD ORDER. VS WNL. WILL CONTINUE TO MONITOR.
--- NOTE | 2021-03-13 07:04 | NUR ---
MS RN CLOSING NOTES PATIENT IN BED, AWAKE. AOx4, ABLE TO MAKE NEEDS KNOWN. ON RA AND TOLERATING WELL. NO SOB NOTED. NO S/SX OF RESPIRATORY DISTRESS NOTED. IV ACCESS IN R HAND #20. IV IS INTACT, PATENT AND FLUSHING WELL. TREATED PAIN THROUGHOUT SHIFT. ALL NEEDS MET.PT KETP CLEAN AND DRY. SAFETY PRECAUTIONS IN PLACE: BED IN LOWEST, LOCKED POSITION, SIDERAILS UPx2, AND BRAKES ON. TABLE AND CALL LIGHT WITHIN REACH. WILL ENDORSE TO ONCOMING SHIFT FOR JAROCHO.
--- NOTE | 2021-03-13 07:30 | NUR ---
MS RN OPENING NOTES RECEIVED PATIENT ON BED, AWAKE AND A/O X4. ON ROOM AIR BREATHING EVENLY AND UNLABORED. NO SOB NOTED. NOT IN DISTRESS. WITH NO COMPLAINTS OF PAIN OR DISCOMFORT AT THIS TIME. WITH IV ACCESS AT RIGHT HAND G20 SALINE LOCKED, PATENT AND INTACT. SAFETY MEASURES IN PLACED. CALL LIGHT WITHIN REACH. BED ON LOWEST LOCKED POSITION, SIDE RAILS UP X2. WILL CONTINUE TO MONITOR.
[2021-03-13 08:00] VITALS: BP 118/69
[2021-03-13] MEDS: ASPIRIN 325 MG TABLET PO SCH (09:26)
[2021-03-13] MEDS: DOCUSATE SODIUM 100 MG CAPSULE PO SCH ×2 (09:26→16:18)
[2021-03-13] MEDS: ATORVASTATIN 40 MG TABLET PO SCH (09:26)
[2021-03-13] MEDS: GABAPENTIN 300 MG CAPSULE PO SCH ×3 (09:27→16:18)
[2021-03-13] MEDS: AMLODIPINE BESYLATE 5 MG TABLET PO SCH (09:27)
[2021-03-13] MEDS: FAMOTIDINE (20 MG) 20 MG TABLET PO SCH ×2 (09:27→20:43)
[2021-03-13 16:00] VITALS: BP 113/67
--- NOTE | 2021-03-13 19:00 | NUR ---
MS RN CLOSING NOTES PATIENT RESTING ON BED, AWAKE AND A/O X4. ON ROOM AIR BREATHING EVENLY AND UNLABORED. NO SOB NOTED. NOT IN DISTRESS. WITH NO COMPLAINTS OF PAIN OR DISCOMFORT AT THIS TIME. WITH IV ACCESS AT RIGHT HAND G20 SALINE LOCKED, PATENT AND INTACT. DUE MEDS GIVEN. SAFETY MEASURES IN PLACED. CALL LIGHT WITHIN REACH. BED ON LOWEST LOCKED POSITION, SIDE RAILS UP X2. WILL ENDORSE TO NEXT SHIFT FOR JAROCHO.
--- NOTE | 2021-03-13 19:20 | NUR ---
MS RN OPENING NOTES Patient is A&Ox4. No signs of distress. R knee no swelling/very minimal with bruise above knee, but no s/s of infection. Patient is able to ambulate well with walker. Pt. does however, c/o pain -will medicate as per MD order.
[2021-03-13 20:00] VITALS: BP 107/57
[2021-03-14] MEDS: HYDROMORPHONE 1 MG/1 ML DISP.SYRIN SQ PRN ×2 (03:45→14:46)
[2021-03-14] MEDS: oxyCODONE IR immediate release 5 MG PO PRN ×2 (05:14→10:16)
--- NOTE | 2021-03-14 06:20 | NUR ---
Patient is A&Ox4 c/o pain to R knee several times throughout shift medicated as per order. Knee minimally swollen, non redness, dressing c/d/i. cap refill to toenails on foot <3 seconds. Patient ambulatory with walker. Only other concern of pt. is to d/c to SNF hopefully. In stable condition.
[2021-03-14 08:00] VITALS: BP 101/52
--- NOTE | 2021-03-14 08:12 | NUR ---
RN OPENING NOTES PATIENT IN BED RESTING, AWAKE. A/O X4. NO S/S OF PAIN NOTED AT THIS TIME. ON ROOM AIR, NO DISTRESS OR SHORTNESS OF BREATH NOTED. IV ACCESS KYLE PICC LINE, INTACT AND PATENT. FALL AND SAFETY MEASURES IN PLACE, BED ALARM ON, BED IN LOW AND LOCK POSITION, CALL LIGHT AND TABLE WITHIN EASY REACH, SIDE RAILS UP X2. WILL CONTINUE TO MONITOR. Addendum: 03/14/21 at 0818 by Kalani Sinha RN IV ACCESS ON R HAND #20G
[2021-03-14] MEDS: GABAPENTIN 300 MG CAPSULE PO SCH ×2 (09:00→14:45)
[2021-03-14] MEDS: AMLODIPINE BESYLATE 5 MG TABLET PO SCH (09:00)
[2021-03-14] MEDS: ASPIRIN 325 MG TABLET PO SCH (10:15)
[2021-03-14] MEDS: DOCUSATE SODIUM 100 MG CAPSULE PO SCH (10:16)
[2021-03-14] MEDS: FAMOTIDINE (20 MG) 20 MG TABLET PO SCH (10:16)
[2021-03-14] MEDS: ATORVASTATIN 40 MG TABLET PO SCH (10:16)
[2021-03-14] MEDS: ACETAMINOPHEN 325 MG TABLET PO PRN (15:32)
[2021-03-14 16:00] VITALS: BP 129/72
--- NOTE | 2021-03-14 17:30 | NUR ---
MINIATURE TRAIN DRIVER NOTE PATIENT DISCHARGE IN MEDICAL STABLE CONDITION. PATIENT WHEN HOME WITH HIS SON. A/O X4. VITAL SIGNS TAKEN, STABLE. NO IV ACCESS. SKIN ASSESSMENT DONE. NAME ARM BAND REMOVED. ALL BELONGING CHECKED AND SIGNED. HEALTH TEACHING AND DISCHARGE INSTRUCTIONS GIVEN AND VERBALIZED UNDERSTANDING. PATIENT LEFT UNIT VIA WHEELCHAIR WITH NO SIGNS OF DISTRESS, ACCOMPANIED BY RN TO THE LOBBY. CHARGE NURSE AWARE OF DISCHARGE.
== END 2021-03-14 17:20 | disposition home health service (06) | DRG 517 ==
LOC: DS 08:48 → MED 08:50
PROVIDERS: ADMIT Internal Medicine; ATTEND Nurse Practitioner Acute Care
PROC: 0QSD04Z Reposition Right Patella with Internal Fixation Device, Open Approach (ICD-10-PCS; principal; 2021-03-07)
DX: M17.11 Unilateral primary osteoarthritis, right knee (principal); G62.9 Polyneuropathy, unspecified; E78.5 Hyperlipidemia, unspecified; I10 Essential (primary) hypertension; G89.29 Other chronic pain; N40.0 Benign prostatic hyperplasia without lower urinary tract symptoms; X58.XXXA Exposure to other specified factors, initial encounter; Y99.0 Civilian activity done for income or pay; Z98.1 Arthrodesis status; Z79.899 Other long term (current) drug therapy; M47.812 Spondylosis without myelopathy or radiculopathy, cervical region
CPT/HCPCS: 36415; 80053-TC; 83735-TC; 84100-TC; 85025-TC; 87081-TC; 88305-TC; 88311-TC; 97110-TC; 97116-TC; 97530-TC; 97760-TC; A4217; C1713; C1776; G0378; J0690; J1040; J1100; J1170; J1885; J2270; J2405; J2704; J3010; J3490; J7030; J7060; J7120; L1830

== ENCOUNTER 2022-02-22 09:51 | Outpatient (CLI) | payer OTHER ==
[~2022-02-22 09:51] MED LIST: ACET-2605 PO; ACET-868 PO; AMLO-212 PO; ASPI-1169 PO; ASPI-992 PO; CALC1TAB30 PO; GABA-532 PO; MELA5TAB PO; ROSU20TA32 PO; TAMS-12 PO
== END 2022-02-22 23:59 | disposition home or self-care (01) ==
LOC: LAB 09:51
PROVIDERS: ATTEND Specialist
DX: Z01.812 Encounter for preprocedural laboratory examination (principal); Z20.822 Contact with and (suspected) exposure to COVID-19
CPT/HCPCS: U0003; C9803

== ENCOUNTER 2022-02-27 06:35 | Inpatient (IN) | payer OTHER ==
[~2022-02-27 06:35] MED LIST changes: +ANESTHESIA TRAY IN PYXIS 1 EA TRAY MC ONE
[2022-02-27] MEDS ORDERED: BUPIVACAINE 0.5 % PF 150 MG/30 ML VIAL IJ ONE (06:36)
[2022-02-27] MEDS ORDERED: ROCURONIUM BROMIDE 50 MG/5 ML IV ONE (06:36)
[2022-02-27] MEDS ORDERED: FENTANYL PF 250MCG/5ML AMPUL IV ONE (06:36)
[2022-02-27] MEDS ORDERED: MIDAZOLAM HCL 2 MG/2ML VIAL ONE (07:29)
[2022-02-27] MEDS ORDERED: TRANEXAMIC ACID 3,000 MG in SODIUM CHLORIDE IRRIG SOLUTION 70 ML IR ONE (08:00)
[2022-02-27] MEDS ORDERED: POLYMYXIN B SULFATE 500,000 UNITS ONE (08:13)
[2022-02-27] MEDS ORDERED: methylPREDNISolone ACETATE 80 MG/ML VIAL ONE (08:13)
[2022-02-27] MEDS ORDERED: BUPIVACAINE 0.5 % PF 150 MG/30 ML VIAL ONE (08:13)
[2022-02-27] MEDS ORDERED: BUPIVACAINE 0.25% 75 MG/30 ML VIAL ONE (08:55)
[2022-02-27] MEDS ORDERED: CLONIDINE HCL 0.1 MG TABLET PO PRN (09:00)
[2022-02-27] MEDS ORDERED: MAG HYDROX/AL HYDROX/SIMETH 30 ML UDC PO PRN (09:00)
[2022-02-27] MEDS ORDERED: diphenhydrAMINE HCL 25 MG CAPSULE PO PRN (09:00)
[2022-02-27] MEDS: FAMOTIDINE (20 MG) 20 MG TABLET PO SCH ×2 (09:00→21:08)
[2022-02-27] MEDS ORDERED: HYDROMORPHONE 1 MG/1 ML DISP.SYRIN SQ PRN (09:00)
[2022-02-27] MEDS ORDERED: ONDANSETRON HCL/PF 4 MG/2 ML VIAL IV PRN (09:00)
[2022-02-27] MEDS: DOCUSATE SODIUM 100 MG CAPSULE PO SCH ×2 (09:00→16:21)
[2022-02-27] MEDS ORDERED: MAGNESIUM HYDROXIDE 30 ML UDC PO PRN (09:00)
[2022-02-27] MEDS ORDERED: MENTHOL/CETYLPYRD (CEPACOL) 1 LOZ LOZENGE PO PRN (09:00)
[2022-02-27] MEDS: GABAPENTIN 300 MG CAPSULE PO SCH ×3 (09:00→16:21)
[2022-02-27] MEDS ORDERED: FENTANYL PF 100MCG/2ML AMPUL ONE (09:55)
[2022-02-27] MEDS ORDERED: IV LR 1000 ML 1,000 ML IV PRN (10:30)
[2022-02-27] MEDS: oxyCODONE IR immediate release 5 MG PO PRN ×3 (12:01→21:08)
[2022-02-27] MEDS: ANCEF 1 GM/50 ML D5W IV SCH ×2 (16:21)
[2022-02-27] MEDS: SENNOSIDES 8.6 MG TABLET PO SCH (16:21)
--- NOTE | 2022-02-27 18:16 | NUR ---
RN NOTES RECEIVED PT C/O PAIN GIVEN OXY PER ORDER 3 TAB AT 15 MG PO, NO ADVERSE SIDE EFFECTS NOTED, VS = 150/82, 99 % OXYGEN 3 L PER NC , RESP 18, TEMP 97.4 ORAL, PT WARM TO TOUCH TEMPERATURE IS NORMAL, PT GIVEN WARM BLANKET AND REPOSITIONED FOR COMFORT, IV SITE 18 GAUGE LEFT FA , PATENT FLUSHING NO INFILTRATION NOTED AT THIS TIME.
--- NOTE | 2022-02-27 19:30 | NUR ---
MS RN OPENING NOTE RECEIVED PT AWAKE IN BED. A/O X4 AND ABLE TO MAKE NEEDS KNOWN. PT ON O2 @ 2LPM, TOLERATING WELL. NO SOB OR S/S OF RESPIRATORY DISTRESS. BREATHING EVEN AND UNLABORED. IV ACCESS L WRIST 18G, INTACT AND PATENT. SAFETY PRECAUTIONS IN PLACE. BED IN LOWEST LOCKED POSITION, HOB ELEVATED, SIDE RAILS UP X2, AND CALL LIGHT AND TABLE WITHIN REACH. ALL NEEDS MET AT THIS TIME.
[2022-02-27 19:31] VITALS: BP 135/78
[2022-02-27 19:33] VITALS: BP 135/78
[2022-02-27 20:00] VITALS: BP 114/62
[2022-02-27] MEDS: TAMSULOSIN 0.4 MG CAP.SR.24H PO SCH (21:08)
--- NOTE | 2022-02-27 21:09 | NUR ---
RN NOTE PT COMPLAINED OF PAIN 7/10 OF LEFT KNEE. ADMINISTERED OXY IR 15 MG FOR MODERATE PAIN ORDERED. MADE COMFORTABLE IN BED. ALL NEEDS MET AT THIS TIME.
[2022-02-28] MEDS: ANCEF 1 GM/50 ML D5W IV SCH ×2 (00:14)
[2022-02-28 05:52] LABS: HEMOGLOBIN 11.7 g/dL (13.5-17.5)
--- NOTE | 2022-02-28 06:47 | NUR ---
MS RN CLOSING NOTE PT AWAKE IN BED. A/O X4 AND ABLE TO MAKE NEEDS KNOWN. PT STABLE ON ROOM AIR, TOLERATING WELL. NO SOB OR S/S OF RESPIRATORY DISTRESS. BREATHING EVEN AND UNLABORED. IV ACCESS L WRIST 18G, INTACT AND PATENT. NO COMPLAINTS OF PAIN OR DISCOMFORT AT THIS TIME. DR JALLOH CALLED WITH TELEPHONE ORDER TO DC IVF, NOTED AND CARRIED OUT. ALL DUE MEDS GIVEN ORDERED. SAFETY PRECAUTIONS IN PLACE AT ALL TIMES. BED IN LOWEST LOCKED POSITION, HOB ELEVATED, SIDE RAILS UP X2, AND CALL LIGHT AND TABLE WITHIN REACH. ALL NEEDS MET AT THIS TIME AND WILL ENDORSE TO ONCOMING NURSE FOR JAROCHO.
--- NOTE | 2022-02-28 07:20 | NUR ---
ms rn received patient on bed, awake,alert,oriented x4,not in any form of distress, respirations even and unlabored,no sob noted, lungs are clear,abdomen soft,positive bowel sounds, denies pain at this time,s/p left knee arthroscopy w/ dressing dry and intact, will monitor patient.
[2022-02-28 08:00] VITALS: BP 130/50
[2022-02-28] MEDS: GABAPENTIN 300 MG CAPSULE PO SCH ×3 (08:28→16:56)
[2022-02-28] MEDS: ASPIRIN 325 MG TABLET PO SCH (08:29)
[2022-02-28] MEDS: FAMOTIDINE (20 MG) 20 MG TABLET PO SCH ×2 (08:29→20:16)
[2022-02-28] MEDS: SENNOSIDES 8.6 MG TABLET PO SCH ×2 (08:29→16:56)
[2022-02-28] MEDS: DOCUSATE SODIUM 100 MG CAPSULE PO SCH ×2 (08:29→16:58)
[2022-02-28] MEDS: oxyCODONE IR immediate release 5 MG PO PRN ×4 (08:30→23:50)
--- NOTE | 2022-02-28 09:00 | NUR ---
ms liao breakfast served, due meds given, tolerated well.
[2022-02-28] MEDS ORDERED: HYDROMORPHONE 1 MG/1 ML DISP.SYRIN IV ONE (09:50)
[2022-02-28] MEDS ORDERED: HYDROMORPHONE 1 MG/1 ML DISP.SYRIN IV PRN (10:00)
--- NOTE | 2022-02-28 10:00 | NUR ---
ms rn was seen by dr. shawn thakkar/ orders made and carried out, discharge order cancelled, patient will be going home tomorrow, medicated for pain.
[2022-02-28] MEDS ORDERED: oxyCODONE IR immediate release 5 MG PO ONE (11:30)
[2022-02-28] MEDS ORDERED: ATORVASTATIN 40 MG TABLET PO SCH (18:00)
--- NOTE | 2022-02-28 18:15 | NUR ---
ms rn on bed, no distress noted, all needs attended.
--- NOTE | 2022-02-28 19:30 | NUR ---
RN notes Pt is sitting in bed comfortably watching TV. Pt is alert and orientedX4. On room air. No SOB. No S/S of distress noted. IV site at L wrist # 20 is clean, intact and flushes well. L knee DONAVON is clean, intact and dry. safety precautions is maintained. Bed at low position, brakes locked, side rails upX2, hob elevated, urinal at the bedside and call light is within reach. Will continue to monitor.
[2022-02-28 20:00] VITALS: BP 131/72
[2022-02-28] MEDS: TAMSULOSIN 0.4 MG CAP.SR.24H PO SCH (21:06)
[2022-03-01] MEDS: oxyCODONE IR immediate release 5 MG PO PRN ×2 (04:32→07:34)
[2022-03-01 05:40] LABS: BASOPHILS % (AUTO) 0.2 % (0.0-2.0); EOSINOPHILS % (AUTO) 2.6 % (0.0-6.0); HEMATOCRIT 33 % (39-51); HEMOGLOBIN 10.9 g/dL (13.5-17.5); LYMPHOCYTES # (AUTO) 1.1 K/uL (0.8-4.8); LYMPHOCYTES % (AUTO) 12.4 % (20.0-44.0); MEAN CORPUSCULAR HGB CONC 34 g/dl (31.0-36.0); MEAN CORPUSCULAR VOLUME 94 fL (80-96); MONOCYTES # (AUTO) 1.3 K/uL (0.1-1.30); MONOCYTES % (AUTO) 13.9 % (2.0-12.0); NEUTROPHILS # (AUTO) 6.5 K/uL (1.8-8.9); NEUTROPHILS % (AUTO) 70.9 % (43.0-81.0); PLATELET COUNT (AUTO) 197 K/uL (150-450); RED BLOOD CELL COUNT(AUTO) 3.47 MIL/uL (4.5-6.0); WHITE BLOOD COUNT (AUTO) 9.2 K/uL (4.3-11.0)
[2022-03-01 05:55] LABS: CALCIUM, SERUM 7.9 mg/dL (8.5-10.1); CREATININE 0.8 mg/dL (0.6-1.3); MAGNESIUM 1.9 mg/dL (1.8-2.4); PHOSPHORUS 3.3 mg/dL (2.5-4.9); POTASSIUM 3.8 mmol/L (3.5-5.1)
[2022-03-01 06:23] LABS: THYROID STIMULATING HORMONE 1.287 uIU/mL (0.358-3.74)
--- NOTE | 2022-03-01 06:36 | NUR ---
RN notes Pt is resting in bed comfortably. Pt is alert and orientedX4. On room air. No SOB. No S/S of distress noted. Vs is stable. afebrile. routine meds were given as ordered including pain meds for pain management. IV site at L wrist # 20 is clean, intact and SL. L knee DONAVON is clean, intact and dry. Kept Pt clean, dry and comfortable. safety precautions is maintained. Bed at low position, brakes locked, side rails upX2, hob elevated, urinal at the bedside and call light is within reach. Will endorse to am nurse for JAROCHO.
[2022-03-01 07:00] VITALS: BP 141/63
--- NOTE | 2022-03-01 07:15 | NUR ---
ms rn received on bed, awake,alert,oriented x4,s/p left surgery,w/ dressing dry and intact, wrap w/ nimco bandage, just medicated for pain by night cleaner, bed locked, on low position, call light w/in reach, all needs attended.
[2022-03-01] MEDS ORDERED: AMLODIPINE BESYLATE 5 MG TABLET PO SCH (09:00)
[2022-03-01] MEDS ORDERED: HYDROMORPHONE 1 MG/1 ML DISP.SYRIN IJ ONE (09:00)
--- NOTE | 2022-03-01 09:00 | NUR ---
ms liao breakfast served,due meds given,tolerated well.
[2022-03-01] MEDS: DOCUSATE SODIUM 100 MG CAPSULE PO SCH (09:30)
[2022-03-01] MEDS: SENNOSIDES 8.6 MG TABLET PO SCH (09:30)
[2022-03-01] MEDS: FAMOTIDINE (20 MG) 20 MG TABLET PO SCH (09:31)
[2022-03-01] MEDS: GABAPENTIN 300 MG CAPSULE PO SCH (09:31)
[2022-03-01] MEDS: ASPIRIN 325 MG TABLET PO SCH (09:31)
[2022-03-01 09:33] VITALS: BP 143/61
--- NOTE | 2022-03-01 10:50 | NUR ---
ms pr intern instructions given and understood, patient refused to change dressing due to pain, went home accompanied by ex .
== END 2022-03-01 10:50 | disposition home health service (06) | DRG 470 ==
LOC: DS 06:35 → MED 11:50
PROVIDERS: ADMIT Nurse Practitioner Family; ATTEND Nurse Practitioner Acute Care
PROC: 0SRD069 Replacement of Left Knee Joint with Oxidized Zirconium on Polyethylene Synthetic Substitute, Cemented, Open Approach (ICD-10-PCS; principal; 2022-02-27)
DX: M17.12 Unilateral primary osteoarthritis, left knee (principal); Z20.822 Contact with and (suspected) exposure to COVID-19; D64.9 Anemia, unspecified; I10 Essential (primary) hypertension; E78.5 Hyperlipidemia, unspecified; F32.A Depression, unspecified; F41.9 Anxiety disorder, unspecified; N40.0 Benign prostatic hyperplasia without lower urinary tract symptoms; Z96.651 Presence of right artificial knee joint; Z98.1 Arthrodesis status; Z88.8 Allergy status to other drugs, medicaments and biological substances; Z80.0 Family history of malignant neoplasm of digestive organs
CPT/HCPCS: 36415; 80048-TC; 80061-TC; 82728-TC; 83540-TC; 83735-TC; 84100-TC; 84443-TC; 85025-TC; 85027-TC; 97112-TC; 97116-TC; 97535-TC; 97760-TC; A4217; C1713; C1776; G0378; J0330; J0690; J1040; J1100; J1170; J1885; J2250; J2405; J2704; J3010; J3490; J7030; J7060; J7120; L1830; Q0163

== ENCOUNTER 2022-03-12 10:45 | Emergency (ER) | payer OTHER ==
[~2022-03-12] VITALS: Ht 167.6 cm; Wt 78.0 kg
[~2022-03-12 10:45] MED LIST changes: -ACET-868 PO; -ANESTHESIA TRAY IN PYXIS 1 EA TRAY MC ONE; -ASPI-992 PO
--- NOTE | 2022-03-12 11:12 | NUR ---
C/O LEFT KNEE DISCOMFORT S/P KNEE REPLACEMENT SURGERY ON FEB 27. SWELLING ON THE KNEE, LEG AND FOOT NOTED. NO REDNESS. PT STATES "I AM ABLE TO WALK AROUND AT HOME, IT'S JUST UNCOMFORTABLE". PT PLACED IN BED AND MONITOR, AAOX4, VSS.
--- NOTE | 2022-03-12 11:14 | NUR ---
CALLED AND LEFT VOICEMAIL FOR ULTRASOUND TO COME BY
--- NOTE | 2022-03-12 11:30 | NUR ---
ENGRAVER BLOCK AT BEDSIDE.
[2022-03-12 11:48] LABS: BASOPHILS % (AUTO) 0.4 % (0.0-2.0); EOSINOPHILS % (AUTO) 2.2 % (0.0-6.0); HEMATOCRIT 37 % (39-51); LYMPHOCYTES # (AUTO) 1.1 K/uL (0.8-4.8); LYMPHOCYTES % (AUTO) 9.5 % (20.0-44.0); MEAN CORPUSCULAR HGB CONC 32 g/dl (31.0-36.0); MEAN CORPUSCULAR VOLUME 93 fL (80-96); MONOCYTES # (AUTO) 0.6 K/uL (0.1-1.30); MONOCYTES % (AUTO) 5.6 % (2.0-12.0); NEUTROPHILS # (AUTO) 9.2 K/uL (1.8-8.9); NEUTROPHILS % (AUTO) 82.3 % (43.0-81.0); PLATELET COUNT (AUTO) 423 K/uL (150-450); RED BLOOD CELL COUNT(AUTO) 3.98 MIL/uL (4.5-6.0); WHITE BLOOD COUNT (AUTO) 11.2 K/uL (4.3-11.0)
--- NOTE | 2022-03-12 11:50 | NUR ---
TRAINING AND QUALITY MANAGER AT BEDSIDE.
[2022-03-12 12:00] LABS: CALCIUM, SERUM 8.3 mg/dL (8.5-10.1); CREATININE 0.9 mg/dL (0.6-1.3)
[2022-03-12 12:05] LABS: ALBUMIN 3.5 g/dL (3.4-5.0); BILIRUBIN,TOTAL 0.4 mg/dL (0.2-1.0); TOTAL PROTEIN, SERUM 7.6 g/dL (6.4-8.2)
--- NOTE | 2022-03-12 13:12 | NUR ---
Patient discharged to home in stable condition. Written and verbal after care instructions given. Patient verbalizes understanding of instruction.
[2022-03-12 13:13] VITALS: BP 140/82
== END 2022-03-12 13:15 | disposition home or self-care (01) ==
LOC: ER 10:50
DX: M79.89 Other specified soft tissue disorders (principal); I10 Essential (primary) hypertension; Z88.8 Allergy status to other drugs, medicaments and biological substances; Z79.899 Other long term (current) drug therapy
CPT/HCPCS: 36415; 80053-TC; 85025-TC; 93970-TC